=== PATIENT | male | born 1955 | race Caucasian/White ===

== ENCOUNTER 2017-04-04 20:20 | Emergency (ER) | payer MEDICARE ==
[2017-04-04] MEDS ORDERED: Zofran 4 MG/2 ML VIAL IV ONE (20:47)
[2017-04-04] MEDS ORDERED: MORPHINE SULFATE 10 MG/ML IV ONE (20:47)
[2017-04-04] MEDS ORDERED: BENADRYL 50 MG/ML IV ONE (20:47)
[2017-04-04] MEDS ORDERED: Zofran 4 MG/2 ML VIAL ONE (20:54)
[2017-04-04] MEDS ORDERED: MORPHINE SULFATE 10 MG/ML ONE (20:54)
[2017-04-04] MEDS ORDERED: BENADRYL 50 MG/ML ONE (20:54)
[2017-04-04] MEDS ORDERED: Sodium Chloride 0.9% 1000 ML 1,000 ML ONE (20:55)
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
[2017-04-04] MEDS ORDERED: Sodium Chloride 0.9% 1000 ML 1,000 ML IV SCH (21:00)
[2017-04-04 21:05] LABS: BASOPHIL % 0.4 % (0.0-0.4); Basophil (Absolute #) 0.04 (0-0.4); Eosinophil % 1.1 % (0.00-5.0); Eosinophil (Absolute #) 0.13 (0-0.5); Granulocyte Absolute (ANC) 8.45 (1.4-6.9); Hematocrit 42.8 % (42-50); Hemoglobin 14.3 gm/dl (12.5-18.0); Lymphocyte (Absolute #) 1.47 (1.0-4.6); Lymphocytes % 12.9 % (24.0-44.0); Mean Cell Volume 86.3 fl (78-100); Mean Corpuscular Hemoglobin 28.8 pg (26-32); Mean Corpuscular Hgb Concent. 33.4 g/dl (32-36); Monocyte (Absolute #) 1.33 (0.0-1.3); Monocytes % 11.6 % (0.0-12.0); Platelet Count 328 K/mm3 (150-450); Red Blood Count 4.96 M/mm3 (4.1-5.6); Red Cell Distribution Width 13.2 % (11.5-14.0); White Blood Count 11.4 K/mm3 (4.0-10.5)
[2017-04-04 21:11] LABS: Appearance CLEAR (CLEAR); Bilirubin NEGATIVE (NEGATIVE); Blood NEGATIVE Ery/ul (0-5); Glucose 1000 mg/dL (NEGATIVE); Ketones MODERATE (NEGATIVE); Leukocyte Esterase NEGATIVE (NEGATIVE); Nitrite NEGATIVE (NEGATIVE); Protein,Urine Dip NEGATIVE (Negative); Specific Gravity 1.015 (1.005-1.025); Urobilinogen NORMAL mg/dL (0-1)
[2017-04-04 21:25] LABS: ANION GAP 17.2 MEQ/L (5-15); BILIRUBIN,TOTAL 0.9 mg/dL (0.2-1.0); Calcium 9.8 mg/dL (8.5-10.1); Creatinine 1 1.4 mg/dl (0.55-1.30); Potassium 4.1 mEq/L (3.5-5.1); Total Protein 7.9 gm/dL (6.4-8.2)
[2017-04-04] MEDS ORDERED: NovoLIN R IV ONE (23:29)
[2017-04-04] MEDS ORDERED: NovoLIN R ONE (23:40)
[2017-04-04 23:45] VITALS: BP 154/76; PULSE 90; O2SAT 96
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
== END 2017-04-04 23:45 | disposition home or self-care (01) ==
LOC: ED 20:20
DX: S20.219A Contusion of unspecified front wall of thorax, initial encounter (principal); S30.1XXA Contusion of abdominal wall, initial encounter; K80.20 Calculus of gallbladder without cholecystitis without obstruction; Y04.0XXA Assault by unarmed brawl or fight, initial encounter; Z98.61 Coronary angioplasty status; R07.9 Chest pain, unspecified; I25.10 Atherosclerotic heart disease of native coronary artery without angina pectoris; E78.00 Pure hypercholesterolemia, unspecified; I10 Essential (primary) hypertension; I25.2 Old myocardial infarction; E11.9 Type 2 diabetes mellitus without complications
CPT/HCPCS: 36415; 71260; 74177; 80053; 81002; 82150; 83690; 84484; 85025; 93005; 96360; 96361; 96374; 96375; 99284; J1200; J2270; J2405; A9270-GY

== ENCOUNTER 2022-07-06 16:51 | Emergency (ER) | payer MEDICARE ==
[2022-07-06] MEDS ORDERED: MORPHINE SULFATE 4 MG INJ IV ONE (16:55)
[2022-07-06] MEDS ORDERED: Sodium Chloride 0.9% 1000 ML 1,000 ML IV STA (16:55)
[2022-07-06] MEDS ORDERED: Sodium Chloride 0.9% 1000 ML 1,000 ML ONE (16:58)
[2022-07-06] MEDS ORDERED: MORPHINE SULFATE 4 MG INJ ONE (16:58)
[2022-07-06 17:17] LABS: Absolute Neutrophil Ct (ANC) 7.79 x10^3/uL (1.4-6.9); BASOPHIL % 0.7 % (0.0-0.4); Basophil (Absolute #) 0.08 x10^3/uL (0-0.4); Eosinophil % 1.8 % (0.00-5.0); Hematocrit 43.1 % (42-50); Hemoglobin 13.8 g/dL (12.5-18.0); IMMATURE GRAN # 0.08 x10^3u/L (0.00-0.03); IMMATURE GRAN % 0.7 % (0.00-0.4); Lymphocyte (Absolute #) 1.78 x10^3/uL (1.0-4.6); Lymphocytes % 16.1 % (24.0-44.0); Mean Cell Volume 91.5 fL (78-100); Mean Corpuscular Hemoglobin 29.3 pg (26-32); Monocyte (Absolute #) 1.13 x10^3/uL (0.0-1.3); Monocytes % 10.2 % (0.0-12.0); Neutrophil % 70.5 % (36.0-66.0); Platelet Count 312 x10^3/uL (150-450); Red Blood Count 4.71 x10^6/uL (4.1-5.6); Red Cell Distribution Width 13.2 % (11.5-14.0); White Blood Count 11.1 x10^3/uL (4.0-10.5)
--- NOTE | 2022-07-06 17:27 | ERPHSYRPT ---
- History of Present Illness Source: patient, family Exam Limitations: no limitations Patient Subjective Stated Complaint: Pt was on his roof of his garage and fell off approx 10 ft and landed on his right shoulder/neck Triage Nursing Assessment: Pt brought to the ER by his son, hypertensive, rates pain as 10/10, can't move his right arm and has pain in his neck, no visible bleeding except for some scratches on his left calf, pulses normal, cap refill normal, hx of neck surgery, denies loss of consciousness Occurred: just prior to arrival Reason for Fall: fell from height Injuries/Pain Location: head, neck, upper extremity (right shoulder) Loss of Consciousness: no loss of consciousness Quality: throbbing Severity of Pain-Max: moderate Severity of Pain-Current: moderate Modifying Factors: Improves With: cold therapy Associated Symptoms (Fall): denies symptoms Hx Tetanus, Diphtheria Vaccination/Date Given: Yes Hx Influenza Vaccination/Date Given: No Hx Pneumococcal Vaccination/Date Given: No <SUHAIL,TIFF - Last Filed: 07/06/22 18:11> <FLORIDALMA FOREMAN - Last Filed: 07/06/22 21:24> - History of Present Illness Time Seen by Provider: 07/06/22 17:23 Physician History: Pt was on his roof of his garage and fell off approx 10 ft and landed on his right shoulder/neck just prior to arrival to ER. rates pain as 10/10, can't move his right arm and has pain in his neck, no visible bleeding except for some scratches on his left calf, Denies loss of consciousness (SUHAIL,TIFF) Allergies/Adverse Reactions: No Known Drug Allergies Allergy (Verified 07/06/22 17:09) Home Medications: Bupropion HCl Xl 150 mg [Wellbutrin XL 150 MG] 300 mg PO DAILY 04/04/17 [History] Duloxetine HCl [Cymbalta] 90 mg PO QHS 04/04/17 [History] Esomeprazole Magnesium [Nexium] 40 mg PO DAILY 04/04/17 [History] Lisinopril 5 mg [Zestril 5 MG] 5 mg PO DAILY 04/04/17 [History] Metformin HCl Xr 500 mg [Glucophage XR 500 MG] 1,000 mg PO BID 04/04/17 [History] Atorvastatin Calcium 80 mg PO DAILY 07/06/22 [History] Insulin Aspart [Novolog] 0 unit SQ UD 07/06/22 [History] Metoprolol Tartrate 50 mg [Lopressor 50 MG] 50 mg PO BID 07/06/22 [History] Testosterone Cypionate 200 mg IM UD 07/06/22 [History] Travel Risk - International Travel Have you traveled outside of the country in past 3 weeks: No - Coronavirus Screening Are you exhibiting any of the following symptoms?: No Close contact with a COVID-19 positive Pt in past 14-21 Days: No - Vaccine Status Have you recieved a Covid-19 vaccination: Yes 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: [employer] - Vaccination Dates Date of 2cond Vaccination (if applicable): 2020 <TIFF JANG - Last Filed: 07/06/22 18:11> - Review of Systems Constitutional: No Fever, No Chills Eyes: No Symptoms Ears, Nose, & Throat: No Symptoms Respiratory: No Cough, No Dyspnea Cardiac: No Chest Pain, No Edema, No Syncope Abdominal/Gastrointestinal: No Abdominal Pain, No Nausea, No Vomiting, No Diarrhea Genitourinary Symptoms: No Dysuria Musculoskeletal: Neck Pain, Fall, Joint Pain (right shoulder), No Back Pain Skin: No Rash Neurological: No Dizziness, No Focal Weakness, No Sensory Changes Psychological: No Symptoms Endocrine: No Symptoms All Other Systems: Reviewed and Negative <TIFF JANG - Last Filed: 07/06/22 18:11> - Review of Systems Hematologic/Lymphatic: No Symptoms Immunological/Allergic: No Symptoms <FLORIDALMA FOREMAN - Last Filed: 07/06/22 21:24> - Past Medical History Pertinent Past Medical History: Yes Neurological History: Peripheral Neuropathy ENT History: Cataracts Cardiac History: Coronary Artery Disease, High Cholesterol, Hypertension, Myocardial Infarction ([place]) Respiratory History: Pneumonia, Sleep Apnea, Other Endocrine Medical History: Diabetes Type II, Other Musculoskeletal History: Degenerative Disk Disease, Osteoarthritis GI Medical History: Hernia, Polyps History: No Pertinent History Psycho-Social History: Anxiety, Depression Male Reproductive Disorders: Prostate Problems Other Medical History: HX OF PLEURISY, FX RIGHT 5TH METACARPAL, ANXIETY, DEPRESSION, HERNIA REPAIR LEFT, INGUINAL HERNIA RIGHT - Past Surgical History Past Surgical History: Yes Neuro Surgical History: No Pertinent History Cardiac: No Pertinent History, Cardiac Stent Respiratory: No Pertinent History Gastrointestinal: Cholecystectomy, Hernia Repair Genitourinary: No Pertinent History Musculoskeletal: No Pertinent History Male Surgical History: Vasectomy Other Surgical History: colonscory, septmeber neck surgery, rotator cuff, vertebrea - Social History Smoking Status: Former smoker How long have you smoked: 40 years Exposure to second hand smoke: No Drug Use: none Patient Lives Alone: No <SUHAIL,TIFF - Last Filed: 07/06/22 18:11> Significant Family History: no pertinent family hx <FLORIDALMA FOREMAN - Last Filed: 07/06/22 21:24> - Anusha Coma Score Best Eye Response ([place]): (4) open spontaneously Best Verbal Response ([place]): (5) oriented Best Motor Response ([place]): (6) obeys commands Anusha Total: 15 - Physical Exam General Appearance: no apparent distress, alert Head Injury: no evidence of injury Eye Exam: PERRL/EOMI ENT Exam: airway nml Neck Exam: normal inspection, pain on movement of neck, tenderness, tender lateral, mid-line tenderness, No meningismus Respiratory/Chest Exam: normal breath sounds, No chest tenderness, No respiratory distress Cardiovascular Exam: normal heart sounds, regular rate/rhythm Gastrointestinal Exam: soft, No tenderness, No distention, No guarding, No ecchymosis Back Exam: normal inspection, No vertebral tenderness Extremity Exam: normal inspection, normal range of motion, pelvis stable, limited range of motion (right shoulder), No deformities Neurologic Exam: alert, oriented x 3, cooperative, sensation nml, No motor deficits Skin Exam: normal color, warm, dry SpO2: 99 <SUHAIL,TIFF - Last Filed: 07/06/22 18:11> - Physical Exam Rectal Exam: deferred Peripheral Pulses: carotid (R): 2+, carotid (L): 2+, femoral (R): 2+, femoral (L): 2+, dorsalis-pedis (R): 2+, dorsalis-pedis (L): 2+ 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, normal mood/affect, nml cerebellar function, nml station & gait SpO2 Interpretation: normal O2 Delivery: Room Air <FLORIDALMA FOREMAN - Last Filed: 07/06/22 21:24> - Nursing Vital Signs Nursing Vital Signs: Initial Vital Signs Temperature 98.1 F 07/06/22 16:55 Pulse Rate 71 07/06/22 16:55 Blood Pressure 131/105 07/06/22 16:55 O2 Sat by Pulse Oximetry 99 07/06/22 16:55 Pain Scale Pain Intensity 8 Procedures - Splinting Time of Procedure: 20:09 (right shoulder immobilization) Location of Splint: Right Type of Splint: Other (Sling and swath immobilization - not exactlty splint but not listed elsewhere to document) Splint Applied By: ED Nurse Pre-Proc Neuro Vasc Exam: normal Post-Proc Neuro Vasc Exam: neurovascular intact, unchanged from pre-exam <FLORIDALMA FOREMAN - Last Filed: 07/06/22 21:24> - Course Nursing assessment & vital signs reviewed: Yes - Radiology Exams Right Shoulder X-ray Interpretation: Reviewed by me (right head of humurus fracture), Teler adiologist Report - CT Exams Head CT Interpretation: Tele-radiologist Report Cervical Spine CT Interpretation: Tele-radiologist Report <TIFF JANG - Last Filed: 07/06/22 18:11> - Course Nursing assessment & vital signs reviewed: Yes - Radiology Exams Right Shoulder X-ray Interpretation: Teleradiologist Report, Other (ACjoint injury) - CT Exams Head CT Interpretation: Tele-radiologist Report, No Fracture, No/Intracranial Hemorrh ag Cervical Spine CT Interpretation: Tele-radiologist Report, No Fracture, Other (DJD SP surgery) Abdomen/Pelvis CT Interpretation: Tele-radiologist Report, Other (renal cysts and fat stranding no free fluid) <FLORIDALMA FOREMAN - Last Filed: 07/06/22 21:24> Ordered Tests: Active Orders 24 hr Category Date Time Status Cervical Collar Application STAT Care 07/06/22 19:56 Active IV Insertion STAT Care 07/06/22 16:57 Active Immobilizer STAT Care 07/06/22 20:07 Active POCT Glucose Check STAT Care 07/06/22 20:25 Active Sling Application STAT Care 07/06/22 20:06 Active ABDOMEN AND PELVIS W/0 CONTRAS [CT] Stat Exams 07/06/22 18:50 Completed CERVICAL SPINE WO CONTRAST [CT] Stat Exams 07/06/22 16:55 Completed HEAD WITHOUT CONTRAST [CT] Stat Exams 07/06/22 16:55 Completed SHOULDER Stat Exams 07/06/22 16:57 Completed AMYLASE Stat Lab 07/06/22 17:15 Completed CBC W DIFF Stat Lab 07/06/22 17:15 Completed CMP Stat Lab 07/06/22 17:15 Completed LIPASE Stat Lab 07/06/22 17:15 Completed Lactic Acid Stat Lab 07/06/22 20:20 Completed POCT GLUCOSE Stat Lab 07/06/22 20:26 Completed UA W/RFX UR CULTURE Stat Lab 07/06/22 20:41 Completed Urine Triage Profile Stat Lab 07/06/22 20:41 Received Medication Summary Discontinued Medications Generic Name Dose Route Start Last Admin Trade Name Freq PRN Reason Stop Dose Admin Hydromorphone HCl 1 mg 07/06/22 18:08 07/06/22 18:12 Hydromorphone 1 Mg/1ml Inj 1 Mg/Ml Syringe IM 07/06/22 18:09 1 mg STAT ONE Administration Hydromorphone HCl Confirm 07/06/22 18:10 Hydromorphone 1 Mg/1ml Inj 1 Mg/Ml Syringe Administered 07/06/22 18:11 Dose 1 mg .ROUTE .STK-MED ONE Hydromorphone HCl 0.5 mg 07/06/22 20:00 07/06/22 20:20 Hydromorphone 1 Mg/1ml Inj 1 Mg/Ml Syringe IV 07/06/22 20:01 0.5 mg STAT ONE Administration Hydromorphone HCl Confirm 07/06/22 20:17 Hydromorphone 1 Mg/1ml Inj 1 Mg/Ml Syringe Administered 07/06/22 20:18 Dose 1 mg .ROUTE .STK-MED ONE Sodium Chloride 1,000 mls @ 999 mls/hr 07/06/22 16:55 07/06/22 17:59 Sodium Chloride 0.9% 1000 Ml IV 07/06/22 17:55 Infused .Q1H1M STA Infusion Sodium Chloride Confirm 07/06/22 16:58 Sodium Chloride 0.9% 1000 Ml Administered 07/06/22 16:59 Dose 1,000 mls @ ud .ROUTE .STK-MED ONE Ketorolac Tromethamine 60 mg 07/06/22 18:08 07/06/22 18:11 Ketorolac Tromethamine 30 Mg/Ml Inj IM 07/06/22 18:09 60 mg STAT ONE Administration Ketorolac Tromethamine Confirm 07/06/22 18:10 Ketorolac Tromethamine 30 Mg/Ml Inj Administered 07/06/22 18:11 Dose 60 mg .ROUTE .STK-MED ONE Morphine Sulfate 4 mg 07/06/22 16:55 07/06/22 16:59 Morphine Sulfate 4 Mg/Ml Injection IV 07/06/22 16:56 4 mg STAT ONE Administration Morphine Sulfate Confirm 07/06/22 16:58 Morphine Sulfate 4 Mg/Ml Injection Administered 07/06/22 16:59 Dose 4 mg .ROUTE .STK-MED ONE Orphenadrine Citrate 60 mg 07/06/22 20:02 07/06/22 20:20 Orphenadrine Citrate 60 Mg/2 Ml Vial IM 07/06/22 20:03 60 mg STAT ONE Administration Orphenadrine Citrate Confirm 07/06/22 20:17 Orphenadrine Citrate 60 Mg/2 Ml Vial Administered 07/06/22 20:18 Dose 60 mg .ROUTE .STK-MED ONE Lab/Rad Data: Laboratory Result Diagrams 07/06/22 17:15 07/06/22 17:15 Laboratory Results 07/06/22 07/06/22 07/06/22 Range/Units 20:41 20:26 20:20 WBC (4.0-10.5) x10^3/uL RBC (4.1-5.6) x10^6/uL Hgb (12.5-18.0) g/dL Hct (42-50) % MCV (78-100) fL MCH (26-32) pg MCHC (32-36) g/dL RDW (11.5-14.0) % Plt Count (150-450) x10^3/uL MPV (7.5-11.0) fL Gran % (36.0-66.0) % Immature Gran % (Auto) (0.00-0.4) % Nucleat RBC Rel Count (0.00-0.1) % Eos # (Auto) (0-0.5) x10^3/uL Immature Gran # (Auto) (0.00-0.03) x10^3u/L Absolute Lymphs (auto) (1.0-4.6) x10^3/uL Absolute Monos (auto) (0.0-1.3) x10^3/uL Absolute Nucleated RBC (0.00-0.01) x10^3u/L Lymphocytes % (24.0-44.0) % Monocytes % (0.0-12.0) % Eosinophils % (0.00-5.0) % Basophils % (0.0-0.4) % Absolute Granulocytes (1.4-6.9) x10^3/uL Basophils # (0-0.4) x10^3/uL Sodium (137-145) mmol/L Potassium (3.5-5.1) mmol/L Chloride (98-107) mmol/L Carbon Dioxide (22-30) mmol/L Anion Gap (5-15) MEQ/L BUN (9-20) mg/dL Creatinine (0.66-1.25) mg/dL Estimated GFR ML/MIN Glucose (74-106) mg/dL POC Glucometer 206 H (74 to 106) mg/dL Lactic Acid 1.9 (0.4-2.0) Calcium (8.4-10.2) mg/dL Total Bilirubin (0.2-1.3) mg/dL AST (17-59) U/L ALT (0-50) U/L Alkaline Phosphatase (38-126) U/L Serum Total Protein (6.3-8.2) g/dL Albumin (3.5-5.0) g/dL Amylase (30-110) U/L Lipase (23-300) U/L Urine Color Dark Yellow (Yellow) Urine Appearance Clear (Clear) Urine pH 5.5 (4.6-8.0) Ur Specific [place] >=1.030 A (1.005-1.030) Urine Protein 100 A (Negative) Urine Glucose (UA) >=1000 A (Negative) mg/dL Urine Ketones Trace A (Negative) Urine Blood Negative (Negative) Urine Nitrite Negative (Negative) Urine Bilirubin Negative (Negative) Urine Urobilinogen 1.0 A (0.2) mg/dL Ur Leukocyte Esterase Negative (Negative) U Hyaline Cast (Auto) 6-10 A (0-2) /LPF Urine Microscopic RBC 0-2 (0-5) /HPF Urine Microscopic WBC 3-5 (0-5) /HPF Ur Epithelial Cells None Seen (None Seen) /HPF Urine Bacteria None Seen (None Seen) /HPF Urine Culture Reflexed NO (NO) 07/06/22 07/06/22 07/06/22 Range/Units 17:15 17:15 17:15 WBC 11.1 H (4.0-10.5) x10^3/uL RBC 4.71 (4.1-5.6) x10^6/uL Hgb 13.8 (12.5-18.0) g/dL Hct 43.1 (42-50) % MCV 91.5 (78-100) fL MCH 29.3 (26-32) pg MCHC 32.0 (32-36) g/dL RDW 13.2 (11.5-14.0) % Plt Count 312 (150-450) x10^3/uL MPV 9.0 (7.5-11.0) fL Gran % 70.5 H (36.0-66.0) % Immature Gran % (Auto) 0.7 H (0.00-0.4) % Nucleat RBC Rel Count 0.0 (0.00-0.1) % Eos # (Auto) 0.20 (0-0.5) x10^3/uL Immature Gran # (Auto) 0.08 H (0.00-0.03) x10^3u/L Absolute Lymphs (auto) 1.78 (1.0-4.6) x10^3/uL Absolute Monos (auto) 1.13 (0.0-1.3) x10^3/uL Absolute Nucleated RBC 0.00 (0.00-0.01) x10^3u/L Lymphocytes % 16.1 L (24.0-44.0) % Monocytes % 10.2 (0.0-12.0) % Eosinophils % 1.8 (0.00-5.0) % Basophils % 0.7 (0.0-0.4) % Absolute Granulocytes 7.79 H (1.4-6.9) x10^3/uL Basophils # 0.08 (0-0.4) x10^3/uL Sodium 142 (137-145) mmol/L Potassium 4.6 (3.5-5.1) mmol/L Chloride 105 (98-107) mmol/L Carbon Dioxide 25 (22-30) mmol/L Anion Gap 15.5 H (5-15) MEQ/L BUN 19 (9-20) mg/dL Creatinine 1.33 H (0.66-1.25) mg/dL Estimated GFR 57.2 ML/MIN Glucose 233 H (74-106) mg/dL POC Glucometer (74 to 106) mg/dL Lactic Acid (0.4-2.0) Calcium 9.2 (8.4-10.2) mg/dL Total Bilirubin 0.70 (0.2-1.3) mg/dL AST 26 (17-59) U/L ALT 19 (0-50) U/L Alkaline Phosphatase 69 (38-126) U/L Serum Total Protein 7.0 (6.3-8.2) g/dL Albumin 4.0 (3.5-5.0) g/dL Amylase 50 (30-110) U/L Lipase 119 (23-300) U/L Urine Color (Yellow) Urine Appearance (Clear) Urine pH (4.6-8.0) Ur Specific [place] (1.005-1.030) Urine Protein (Negative) Urine Glucose (UA) (Negative) mg/dL Urine Ketones (Negative) Urine Blood (Negative) Urine Nitrite (Negative) Urine Bilirubin (Negative) Urine Urobilinogen (0.2) mg/dL Ur Leukocyte Esterase (Negative) U Hyaline Cast (Auto) (0-2) /LPF Urine Microscopic RBC (0-5) /HPF Urine Microscopic WBC (0-5) /HPF Ur Epithelial Cells (None Seen) /HPF Urine Bacteria (None Seen) /HPF Urine Culture Reflexed (NO) - Progress Progress: improved, pain not gone completely Counseled pt/family regarding: lab results, diagnosis, need for follow-up, rad results <TIFF JANG - Last Filed: 07/06/22 18:11> - Progress Progress: improved, re-examined Counseled pt/family regarding: lab results, diagnosis, need for follow-up, rad results <FLORIDALMA FOREMAN - Last Filed: 07/06/22 21:24> - Progress Progress Note: 07/06/22 18:51 taken over at change of shift from Dr. Jang after introduction and discussion of pending CT and telrad read for right shoulder which appears impacted Fx. No known LOC. full ROM other ext without pain. Abd tender RLQ - discussed risk and benefit of CT and purpose to look for internal injury and pt wishes to proceed. He has normal mental status . No dizziness. Normal neuro . No blood thinners. Last tet update 2 years ago per pt. Collaborated Hx with son independently as source. Consulting with telrad for CT and right shoulder rad readings. 07/06/22 18:56 abrasion left elbow and superficial lac left LE all nontender. 07/06/22 20:03 Discussed additional labs lipase amylase lactate due to abd pain as well as abd ct with pt and family risks and benefits and they wish to proceed. Reviewed and Discussed with family and pt, results of shoulder ( still ligament injury no fx seen but may be occult) CT head adn Cspine DDD and need to be alert for progression from usual PN symptoms and any bowel or bladder symptoms to retuyrn and they understand. 07/06/22 21:20 Pt and family advised that even with no internal bleeding on cat scan or serious injury there can still be something evolving not yet detected and tehy understand and pprefer DC to outpt f/u rather than further w/u in ER or admit at this time and this is reasonable given current results. they have the capacity to make this choice. (FLORIDALMA FOREMAN) Medical Desision Making - Diagnostic Testing Diagnostic test were ordered, analyzed, and reviewed by me: Yes Radiological Interpretation: Interpreted by me, Reviewed by me, Teleradiologist Report - Risk of complications The pt has a mod risk of morbidity or mortality based on: Need for minor surgical intervention in patient with know risk factors <TIFF JANG - Last Filed: 07/06/22 18:11> <TIFF JANG - Last Filed: 07/06/22 18:11> - Departure Departure Disposition: Home Critical Care Time: No <FLORIDALMA FOREMAN - Last Filed: 07/06/22 21:24> - Departure Clinical Impression: Separation of right acromioclavicular joint, cervical spine strain/DDD, Concussion, renal contussion and cyst Condition: Good Referrals: SHERLYN CARR MD [Primary Care Provider] - Follow up/PCP as directed Instructions: Concussion, Adult (DC), Shoulder, Degenerative Disc Disease (DC), Shoulder Sprain (DC) Additional Instructions: followup with orthopedic for your right shoulder and cervical disc disease and strain. See your regular Dr. for your concussion and kidney contusion and cysts. There could still be a serious injury from the concussion evolving and in the stomach from trauma evolving even though the CT scans appear OK initially - so it is important to return meantime if any concerns. Use tylenol for pain as this is less likely to cause bleeding if internal injury. No driving when taking muscle relaxer. Prescriptions: Cyclobenzaprine HCl 10 mg [Cyclobenzaprine 10 MG] 10 mg PO Q8H PRN PRN #10 tablet PRN Reason: Pain
[2022-07-06 17:31] LABS: ANION GAP 15.5 MEQ/L (5-15); BILIRUBIN,TOTAL 0.7 mg/dL (0.2-1.3); Calcium 9.2 mg/dL (8.4-10.2); Creatinine 1 1.33 mg/dL (0.66-1.25); EST GLOMERULAR FILTRATION RATE 57.2 ML/MIN; Potassium 4.6 mmol/L (3.5-5.1)
[2022-07-06] MEDS ORDERED: Hydromorphone 1 mg/ml Injection IM ONE (18:08)
[2022-07-06] MEDS ORDERED: TORAdol 30 mg Injection IM ONE (18:08)
[2022-07-06] MEDS ORDERED: Hydromorphone 1 mg/ml Injection ONE ×2 (18:10→20:17)
[2022-07-06] MEDS ORDERED: TORAdol 30 mg Injection ONE (18:10)
--- NOTE | 2022-07-06 19:05 | XRAY ---
CLINICAL HISTORY:Fall from roof. COMPARISON:CT head done on 06/14/2013. TECHNIQUES:Axial noncontrast CT scan of the brain was performed from the skull base to the high parietal region. CTDI: 53.92, DLP:1016.25. FINDINGS: The ventricular system, cortical sulci and basal cisterns are unremarkable according to the age. The visualized brain parenchyma shows normal appearance. English-white matter differentiation is maintained. No midline shifts or deformity. No intracerebral or extra axial hematoma. Normal size and configuration of the cerebral ventricles. Normal CT appearance of the posterior fossa structures namely the cerebellar hemispheres, brainstem and cerebellar peduncles. The IACs are unremarkable. The cerebello-pontine angles are clear. The pituitary gland, the pineal gland, the optic chiasm is unremarkable. The osseous structures in the skull base are unremarkable. No definite calvarium fractures. Th scanned paranasal sinuses are clear. IMPRESSION: 1. Unremarkable scan. 2. No interval change when compared to the last scan. Electronically Signed by: Ta Seymour MD. (07/06/2022 17:56:40 RIGGING UP WORKER)
--- NOTE | 2022-07-06 19:16 | XRAY ---
CLINICAL HISTORY:Fall from roof. COMPARISON:Prior CT dated 12/26/2015. TECHNIQUES:Continuous, multislice, nonenhanced CT scan of the cervical spine in the axial plane with multiplanar reconstructions. Total DLP-654.18; CTDI-28.62. FINDINGS: Reduced cervical lordotic curve suggestive of muscle spasm. Degenerative osseous changes but no suspicious focal bony lesions. Anterior spinal fixation of C5 and C6 showing disc prosthesis at C5-C6 level without hardware complications. Interspinous prosthesis at C5/C6. No vertebral wedging or collapse. At C3-C4, C4-C5, there is mild posterior disc bulge compressing the thecal sac and encroaching upon lateral recess and neural foramina. At C6-C7, there is posterior osteophyte disc complex indenting the thecal sac and there are bilateral recess narrowing compromising neural foramina. Unremarkable facet joints. Unremarkable craniocervical junction. Preserved spinal canal with no retropulsed fragments. No signs of spinal instability. No paraspinal mass or collection. IMPRESSION: 1. Reduced cervical lordotic curve suggestive of muscle spasm. 2. No acute bony injury is identified. 3. Status post ACDF showing disc prosthesis at C5-C6 level without hardware complications. Interspinous implant at C5/C6. 4. Cervical spondylodegenerative changes with multilevel posterior disc bulge mainly at C3-C4, C4-C5 and C6-C7 levels as described. Electronically Signed by: Ta Seymour MD. (07/06/2022 18:08:35 PRODUCT INFO SPECIALIST)
--- NOTE | 2022-07-06 19:21 | XRAY ---
CLINICAL HISTORY:Fall. COMPARISON:Prior CR dated 08/23/2013. TECHNIQUES:X-ray of right shoulder-AP [external/internal rotation] and lateral views. FINDINGS: There is widening of the right acromioclavicular joint space. The cortical clavicular joint space is maintained. Degenerative changes in the glenohumeral joint as evidenced by narrowing of joint space. No acute bony fracture is identified. Calcified densities seen in the superolateral aspect of right humerus representing calcific tendinitis. IMPRESSION: 1. Widening of the right acromioclavicular joint space representing acromioclavicular joint injury. Suggest clinical correlation. 2. Degenerative changes in the glenohumeral joint representing arthritic changes. 3. No acute bony fracture is identified. 4. Supraspinatus calcific tendinitis. Bone Disclaimer: A subtle bone abnormality or fracture may not be readily apparent on x-rays, thus clinical correlation and further imaging including follow-up CT, MRI or follow-up x-rays are advised as needed. Electronically Signed by: Ta Seymour MD. (07/06/2022 18:12:46 SURVEY SUPERINTENDENT)
[2022-07-06] MEDS ORDERED: Hydromorphone 1 mg/ml Injection IV ONE (20:00)
[2022-07-06] MEDS ORDERED: Norflex 60 MG/2 ML IM ONE (20:02)
[2022-07-06 20:11] LABS: AMYLASE 50 U/L (30-110); LIPASE 119 U/L (23-300)
[2022-07-06] MEDS ORDERED: Norflex 60 MG/2 ML ONE (20:17)
--- NOTE | 2022-07-06 20:21 | XRAY ---
CLINICAL HISTORY:Tender right abd after fall. COMPARISON:CT done on 04/04/2017. TECHNIQUES:CT scan of the abdomen and pelvis was performed without contrast. Coronal and sagittal reconstructive images were also obtained. CTDI: 11.13 mGy, DLP: 586.5 mGy*cm. FINDINGS: The liver appears normal. No focal or diffuse parenchymal abnormality. The portal vein, intrahepatic biliary radicals and the bile ducts are normal. Gallbladder is surgically removed. No abnormality in gallbladder fossa. The spleen, pancreas, adrenal glands are unremarkable. Both kidneys shows multiple hypoattenuation cortical cysts. There is perinephric fat stranding bilaterally. The largest cyst in the right kidney measures 2.5 x 1.7 cm in interpolar region. The largest cyst in left kidney measures 4.1 x 3.7 cm. No calculi or hydronephrosis. Colon shows diverticulosis without evidence of diverticulitis. There is no evidence of significant enlargement of the mesenteric or retroperitoneal lymph nodes. Atherosclerotic calcification of abdominal aorta and iliac vessels. The urinary bladder is partially distended. The prostate appear mildly enlarged. Bilateral subcentimeter inguinal lymph nodes. Bilateral fat-containing inguinal hernia. Anterior osteophyte formation is seen in the visualized spine. No sclerotic or lytic osseous lesions. No free fluid in abdomen. Lung window shows airspace disease at lung bases bilaterally, more on the right. IMPRESSION: 1. Bilateral renal cortical cysts with perinephric fat stranding. 2.Increased perinephric fat stranding when compared to the last scan. 3. Uncomplicated sigmoid diverticulosis. 4. Mild enlarged prostate. 5. Rest of the findings as detailed above. Electronically Signed by: Ta Seymour MD. (07/06/2022 19:13:58 GROUP SALES MANAGER)
[2022-07-06 20:56] LABS: Appearance Clear (Clear); Bacteria None Seen /HPF (None Seen); Bilirubin Negative (Negative); Blood Negative (Negative); Epithelial Cells None Seen /HPF (None Seen); Glucose, Urine >=1000 mg/dL (Negative); Ketones Trace (Negative); Leukocyte Esterase Negative (Negative); Nitrite Negative (Negative); Ph 5.5 (4.6-8.0); Protein,Urine Dip 100 (Negative); RBC 0-2 /HPF (0-5); Specific Gravity >=1.030 (1.005-1.030)
[2022-07-06 20:57] LABS: ADD URINE CULTURE? NO (NO)
[2022-07-06 21:05] LABS: Amphetamine,Urine NEGATIVE (NEGATIVE); Barbiturate,Urine NEGATIVE (NEGATIVE); Benzodiazepine,Urine NEGATIVE (NEGATIVE); Cocaine,Urine NEGATIVE (NEGATIVE); Methadone,Urine NEGATIVE (NEGATIVE); Opiate,Urine POSITIVE (NEGATIVE); PCP,Urine NEGATIVE (NEGATIVE); THC,Urine POSITIVE (NEGATIVE)
[2022-07-06 21:29] VITALS: BP 155/84; PULSE 69; O2SAT 97
== END 2022-07-06 21:30 | disposition home or self-care (01) ==
LOC: ED 16:51
DX: S43.101A Unspecified dislocation of right acromioclavicular joint, initial encounter (principal); S16.1XXA Strain of muscle, fascia and tendon at neck level, initial encounter; S06.0X0A Concussion without loss of consciousness, initial encounter; S37.019A Minor contusion of unspecified kidney, initial encounter; W13.2XXA Fall from, out of or through roof, initial encounter; Y92.007 Garden or yard of unspecified non-institutional (private) residence as the place of occurrence of the external cause; M50.30 Other cervical disc degeneration, unspecified cervical region; Q61.02 Congenital multiple renal cysts; E78.5 Hyperlipidemia, unspecified; I10 Essential (primary) hypertension; E11.42 Type 2 diabetes mellitus with diabetic polyneuropathy; Z79.4 Long term (current) use of insulin; Z79.84 Long term (current) use of oral hypoglycemic drugs; Z79.899 Other long term (current) drug therapy
CPT/HCPCS: 36000; 36415; 70450; 72125; 73030; 74176; 80053; 80307; 81001; 82150; 82947; 83605; 83690; 85025; 96360; 96372; 96374; 96375; 96376; 99284; J1170; J1885; J2270; J2360; L3650

== ENCOUNTER 2022-12-03 03:13 | Emergency (ER) | payer MEDICARE ==
[2022-12-03 03:28] VITALS: TEMP 97.4
[2022-12-03] MEDS ORDERED: Zofran 4 MG/2 ML VIAL IV ONE (03:52)
[2022-12-03] MEDS ORDERED: MORPHINE SULFATE 4 MG INJ IV ONE (03:52)
[2022-12-03] MEDS ORDERED: BABY ASPIRIN 81 MG CHEW PO ONE (03:52)
--- NOTE | 2022-12-03 03:57 | ERPHSYRPT ---
<TIFFANIE COLÓN AlexCiro - Last Filed: 12/03/22 06:47> - History of Present Illness Time Seen by Provider: 12/03/22 03:25 Historian: patient, family (Patient's spouse gave independent additional histor y) Exam Limitations: no limitations Patient Subjective Stated Complaint: pt states he began having chest pain at approx 2200 tnight. rates pain 9/10 and describes as aching and pressure. Triage Nursing Assessment: pt alert and oriented, answers questions approp. pt ambulates into room with steady gait noted. respirations nonlabored. lungs cta bilat. skin warm and dry. heart rate 82 sinus rhythm on monitor. Physician History: This is a 67-year-old white male patient who presents to the emergency department with nonradiating, left anterior chest pressure that began approximately 9 to 10:00 PM last evening. His pain and somewhat improved until earlier this morning when approximately 1 to 2 hours prior to arrival, he ended up taking 2 nitroglycerin because of the increased intensity of his left chest pressure. He only received mild relief. Patient recently had a right scapular/shoulder surgery. This chest pressure is separate from that other pain he was having in the right shoulder/scapular region. Patient's measurement psychologist is Dr. Russell. Patient has a history of diabetes, hypertension, hyperlipidemia and gastroesophageal reflux disease. Timing/Duration: yesterday Quality: pressure (Left anterior chest) Chest Pain Radiation: no radiation Severity of Pain-Max: moderate Severity of Pain-Current: mild (to mod) Modifying Factors: Improves With: nitroglycerin (Mildly, temporarily improved) Associated Symptoms: denies symptoms Nitro Today/Relief: 0.4 mg x 2, provided at home, mild relief (Temporary) Aspirin Treatment Today: no aspirin today Allergies/Adverse Reactions: No Known Drug Allergies Allergy (Verified 12/03/22 03:28) Home Medications: Bupropion HCl Xl 150 mg [Wellbutrin XL 150 MG] 300 mg PO DAILY 04/04/17 [History] Duloxetine HCl [Cymbalta] 90 mg PO QHS 04/04/17 [History] Esomeprazole Magnesium [Nexium] 40 mg PO DAILY 04/04/17 [History] Lisinopril 5 mg [Zestril 5 MG] 5 mg PO DAILY 04/04/17 [History] Metformin HCl Xr 500 mg [Glucophage XR 500 MG] 1,000 mg PO DAILY 04/04/17 [History] Atorvastatin Calcium 80 mg PO DAILY 07/06/22 [History] Insulin Aspart [Novolog] 0 unit SQ UD 07/06/22 [History] Metoprolol Tartrate 50 mg [Lopressor 50 MG] 50 mg PO BID 07/06/22 [History] Testosterone Cypionate 200 mg IM UD 07/06/22 [History] Hx Tetanus, Diphtheria Vaccination/Date Given: Yes Hx Influenza Vaccination/Date Given: No Hx Pneumococcal Vaccination/Date Given: No Travel Risk - International Travel Have you traveled outside of the country in past 3 weeks: No - Coronavirus Screening Are you exhibiting any of the following symptoms?: No Close contact with a COVID-19 positive Pt in past 14-21 Days: No - Vaccine Status Have you recieved a Covid-19 vaccination: Yes 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[employer] - Vaccination Dates Date of 2cond Vaccination (if applicable): 2020 - Review of Systems Constitutional: No Symptoms Eyes: No Symptoms Ears, Nose, & Throat: No Symptoms Respiratory: No Symptoms Cardiac: Chest Pain Abdominal/Gastrointestinal: No Symptoms Genitourinary Symptoms: No Symptoms Musculoskeletal: No Symptoms Skin: No Symptoms Neurological: No Symptoms Psychological: No Symptoms Endocrine: No Symptoms Hematologic/Lymphatic: No Symptoms Immunological/Allergic: No Symptoms All Other Systems: Reviewed and Negative - Past Medical History Pertinent Past Medical History: Yes Neurological History: Peripheral Neuropathy ENT History: Cataracts Cardiac History: Coronary Artery Disease, High Cholesterol, Hypertension, Myocardial Infarction ([place]) Respiratory History: Pneumonia, Sleep Apnea, Other Endocrine Medical History: Diabetes Type II, Other Musculoskeletal History: Degenerative Disk Disease, Osteoarthritis GI Medical History: Hernia, Polyps History: No Pertinent History Psycho-Social History: Anxiety, Depression Male Reproductive Disorders: Prostate Problems Other Medical History: HX OF PLEURISY, FX RIGHT 5TH METACARPAL, ANXIETY, DEPRESS ION, HERNIA REPAIR LEFT, INGUINAL HERNIA RIGHT - Past Surgical History Past Surgical History: Yes Neuro Surgical History: No Pertinent History Cardiac: No Pertinent History, Cardiac Stent Respiratory: No Pertinent History Gastrointestinal: Cholecystectomy, Hernia Repair Genitourinary: No Pertinent History Musculoskeletal: No Pertinent History, Other Male Surgical History: Vasectomy Other Surgical History: colonscory, septmeber neck surgery, rotator cuff, ve rtebrea. cervical fusion. scapula repair d/t fracture - Social History Smoking Status: Former smoker How long have you smoked: 40 years Exposure to second hand smoke: No Drug Use: none Patient Lives Alone: No Significant Family History: no pertinent family hx - Physical Exam General Appearance: no apparent distress, alert, anxiety Eye Exam: PERRL/EOMI, eyes nml inspection Ears, Nose, Throat Exam: normal ENT inspection, moist mucous membranes Neck Exam: normal inspection, non-tender, supple, full range of motion Respiratory Exam: normal breath sounds, chest tenderness (Described as left an terior chest pressure that is not on radiating), lungs clear, airway intact, No respiratory distress Cardiovascular Exam: regular rate/rhythm, normal heart sounds, normal peripheral pulses Gastrointestinal/Abdomen Exam: soft, normal bowel sounds, No tenderness Rectal Exam: not done Back Exam: normal inspection, normal range of motion, No CVA tenderness, No vertebral tenderness Extremity Exam: normal inspection, normal range of motion, pelvis stable Neurologic Exam: alert, oriented x 3, cooperative, direct marketing representative II-XII nml as tested, normal mood/affect, nml cerebellar function, nml station & gait, sensation nml Skin Exam: normal color, warm, dry Lymphatic Exam: No adenopathy SpO2 Interpretation: normal SpO2: 97 O2 Delivery: Room Air - Course Nursing assessment & vital signs reviewed: Yes EKG Interpreted by Me: RATE (82), Sinus Rhythm, Right [place] Deviation (Borderline), NORMAL INTERVALS, NORMAL QRS, NORMAL ST-T, Other (No acute ischemic changes on today's twelve-lead EKG) - Progress Progress: improved, re-examined Air Movement: good Progress Note: 12/03/22 04:02 This patient's medical issue is 1 of moderate complexity. Level complexity in the work-up performed is based on review of the patient's past medical history, review the patient's medication list, review the patient's drug allergy list, history of present illness and physical findings on examination. The work-up in this patient includes twelve-lead EKG, D-dimer, BNP, troponin level, CBC and CMP. We will hold off on the chest x-ray pending the D-dimer result. If the D- dimer is positive we will perform a CT scan of the chest with contrast. If it is negative we will perform a CT scan of the chest without contrast and also have the radiologist comment on the right scapula. 12/03/22 05:08 Patient reexamined. Patient no longer has chest pain. The patient's D-dimer is slightly elevated at 0.96. Patient will undergo CTA of the chest to evaluate for pulmonary embolus. 12/03/22 06:47 CT scan of the chest with contrast was interpreted by the radiologist. There is no evidence of any pulmonary embolus. There are some changes to suggest small airway disease. No obvious infiltrate present. The patient no longer has chest pain. He has no shortness of breath. The repeat, 3-hour twelve-lead EKG is improved over the first nonacute twelve-lead EKG. The patient's heart rate is now 66 bpm and in normal sinus rhythm without evidence of any acute ischemia. We are awaiting the serial troponin level. I am transferring care of this patient to Dr. Kannan Curry at shift change. If the troponin is in the normal range, I feel this patient can be discharged home. However if it continues to increase he may need inpatient observation with serial twelve-lead EKGs and troponin levels. Blood Culture(s) Obtained: No Antibiotics given: No Counseled pt/family regarding: lab results, diagnosis, need for follow-up, rad results Medical Desision Making - Independent Historian Additional History obtained from: Spouse - Diagnostic Testing Diagnostic test were ordered, analyzed, and reviewed by me: Yes Radiological Interpretation: Reviewed by me, Teleradiologist Report - Risk of complications Low Risk: Low risk of morbidity from additional dx testing or treatment - Departure Departure Disposition: Home Clinical Impression: Chest pain, Acute coronary syndrome, Calcified lung nodule Condition: Stable Critical Care Time: No Referrals: SHERLYN CARR MD [Primary Care Provider] - Follow up/PCP as directed <KANNAN CURRY - Last Filed: 12/03/22 08:22> - History of Present Illness Physician History: Case discussed with Dr. Stewart at 7:[address] Stewart excepts transfer to [facility]. Patient initial troponin elevated at 0.036. Repeat troponin elevated at 0.046. Patient's measurement psychologist, Dr. Russell is on staff at [facility]. Patient agrees to transfer to [facility] for further evaluation and treatment. Patient reassessed. No active chest pain. Vital stable. Family at bedside. Patient voices no other complaints or concerns at this time. - Nursing Vital Signs Nursing Vital Signs: Initial Vital Signs Temperature 97.4 F 12/03/22 03:16 Pulse Rate 78 12/03/22 03:16 Respiratory Rate 20 12/03/22 03:16 Blood Pressure 127/74 12/03/22 03:16 O2 Sat by Pulse Oximetry 97 12/03/22 03:16 Pain Scale Pain Intensity 6 - CT Exams Chest CT Interpretation: Tele-radiologist Report (CT chest negative for PE. Calcified lung nodule observed) Ordered Tests: Active Orders 24 hr Category Date Time Status EKG-ER Only STAT Care 12/03/22 03:52 Active IV Insertion STAT Care 12/03/22 03:52 Active CHEST WITH CONTRAST [CT] Stat Exams 12/03/22 04:54 Completed CBC Q48H Lab 12/04/22 06:00 Ordered CBC Q48H Lab 12/06/22 06:00 Ordered CBC Q48H Lab 12/08/22 06:00 Ordered CBC Q48H Lab 12/10/22 06:00 Ordered CBC Q48H Lab 12/12/22 06:00 Ordered CBC Q48H Lab 12/14/22 06:00 Ordered CBC Q48H Lab 12/16/22 06:00 Ordered CBC Stat Lab 12/03/22 07:55 Ordered CBC W DIFF Stat Lab 12/03/22 03:52 Completed CMP Stat Lab 12/03/22 03:52 Completed D-DIMER QUANTITATIVE Stat Lab 12/03/22 03:52 Completed NT PRO BNPII Stat Lab 12/03/22 03:52 Completed PROTIME WITH INR Stat Lab 12/03/22 07:51 Ordered PROTIME WITH INR Stat Lab 12/03/22 07:55 Ordered PTT Q4H Lab 12/03/22 08:00 Ordered PTT Q4H Lab 12/03/22 12:00 Ordered PTT Q4H Lab 12/03/22 16:00 Ordered PTT Q4H Lab 12/03/22 20:00 Ordered PTT Q4H Lab 12/04/22 00:00 Ordered PTT Q4H Lab 12/04/22 04:00 Ordered PTT Q4H Lab 12/04/22 08:00 Ordered PTT Q4H Lab 12/04/22 12:00 Ordered PTT Q4H Lab 12/04/22 16:00 Ordered PTT Q4H Lab 12/04/22 20:00 Ordered PTT Q4H Lab 12/05/22 00:00 Ordered PTT Q4H Lab 12/05/22 04:00 Ordered PTT Stat Lab 12/03/22 07:51 Ordered PTT Stat Lab 12/03/22 07:55 Ordered TROPONIN Q4H Lab 12/03/22 04:30 Completed TROPONIN Q4H Lab 12/03/22 06:36 Completed TROPONIN Q4H Lab 12/03/22 12:00 Ordered Medication Summary Generic Name Dose Route Start Last Admin Trade Name Freq PRN Reason Stop Dose Admin Heparin Sodium/Dextrose 25,000 units in 250 mls @ 9.66 mls/hr 12/03/22 08:00 Heparin 25,000 Units/D5w: Use Order Set Dilshad IV 01/02/23 07:59 .Q24H TEETEE Protocol 12 UNITS/KG/HR Discontinued Medications Generic Name Dose Route Start Last Admin Trade Name Freq PRN Reason Stop Dose Admin Aspirin 324 mg 12/03/22 03:52 12/03/22 04:01 Aspirin 81 Mg Tab.Chew PO 12/03/22 03:53 324 mg STAT ONE Administration Aspirin Confirm 12/03/22 03:59 Aspirin 81 Mg Tab.Chew Administered 12/03/22 04:00 Dose 324 mg .ROUTE .STK-MED ONE Heparin Sodium (Beef Lung) 5,000 unit 12/03/22 07:46 12/03/22 08:15 Heparin 5000 Units/0.5 Ml 5,000 Unit/0.5 Ml Syr IV 12/03/22 07:47 5,000 unit STAT STA Administration Sodium Chloride 500 mls @ 500 mls/hr 12/03/22 04:58 12/03/22 06:55 Sodium Chloride 0.9% 500 Ml IV 12/03/22 05:57 Infused .Q1H ONE Infusion Sodium Chloride Confirm 12/03/22 05:04 Sodium Chloride 0.9% 500 Ml Administered 12/03/22 05:05 Dose 500 mls @ ud IV .STK-MED ONE Sodium Chloride Confirm 12/03/22 05:26 Sodium Chloride 0.9% 1000 Ml Administered 12/03/22 05:27 Dose 1,000 mls @ ud .ROUTE .STK-MED ONE Morphine Sulfate 4 mg 12/03/22 03:52 12/03/22 04:01 Morphine Sulfate 4 Mg/Ml Injection IV 12/03/22 03:53 4 mg STAT ONE Administration Morphine Sulfate Confirm 12/03/22 03:59 Morphine Sulfate 4 Mg/Ml Injection Administered 12/03/22 04:00 Dose 4 mg .ROUTE .STK-MED ONE Ondansetron HCl 4 mg 12/03/22 03:52 12/03/22 04:00 Ondansetron Hcl 4 Mg/2 Ml Vial IV 12/03/22 03:53 4 mg STAT ONE Administration Ondansetron HCl Confirm 12/03/22 03:58 Ondansetron Hcl 4 Mg/2 Ml Vial Administered 12/03/22 03:59 Dose 4 mg .ROUTE .STK-MED ONE Ondansetron HCl Confirm 12/03/22 05:25 Ondansetron Hcl 4 Mg/2 Ml Vial Administered 12/03/22 05:26 Dose 4 mg .ROUTE .STK-MED ONE Lab/Rad Data: Laboratory Result Diagrams 12/03/22 03:52 12/03/22 03:52 Laboratory Results 12/03/22 12/03/22 12/03/22 Range/Units 06:36 04:30 03:52 WBC (4.0-10.5) x10^3/uL RBC (4.1-5.6) x10^6/uL Hgb (12.5-18.0) g/dL Hct (42-50) % MCV (78-100) fL MCH (26-32) pg MCHC (32-36) g/dL RDW (11.5-14.0) % Plt Count (150-450) x10^3/uL MPV (7.5-11.0) fL Gran % (36.0-66.0) % Immature Gran % (Auto) (0.00-0.4) % Nucleat RBC Rel Count (0.00-0.1) % Eos # (Auto) (0-0.5) x10^3/uL Immature Gran # (Auto) (0.00-0.03) x10^3u/L Absolute Lymphs (auto) (1.0-4.6) x10^3/uL Absolute Monos (auto) (0.0-1.3) x10^3/uL Absolute Nucleated RBC (0.00-0.01) x10^3u/L Lymphocytes % (24.0-44.0) % Monocytes % (0.0-12.0) % Eosinophils % (0.00-5.0) % Basophils % (0.0-0.4) % Absolute Granulocytes (1.4-6.9) x10^3/uL Basophils # (0-0.4) x10^3/uL D-Dimer 0.96 H* (0.0-0.50) mg/L Sodium (137-145) mmol/L Potassium (3.5-5.1) mmol/L Chloride (98-107) mmol/L Carbon Dioxide (22-30) mmol/L Anion Gap (5-15) MEQ/L BUN (9-20) mg/dL Creatinine (0.66-1.25) mg/dL Estimated GFR ML/MIN Glucose (74-106) mg/dL Calcium (8.4-10.2) mg/dL Total Bilirubin (0.2-1.3) mg/dL AST (17-59) U/L ALT (0-50) U/L Alkaline Phosphatase (38-126) U/L Troponin I 0.046 H* 0.036 H* (0.000-0.034) ng/mL NT-Pro-B Natriuret Pep (<300) pg/mL Serum Total Protein (6.3-8.2) g/dL Albumin (3.5-5.0) g/dL 12/03/22 12/03/22 Range/Units 03:52 03:52 WBC 7.4 (4.0-10.5) x10^3/uL RBC 4.05 L (4.1-5.6) x10^6/uL Hgb 12.1 L (12.5-18.0) g/dL Hct 37.1 L (42-50) % MCV 91.6 (78-100) fL MCH 29.9 (26-32) pg MCHC 32.6 (32-36) g/dL RDW 12.9 (11.5-14.0) % Plt Count 281 (150-450) x10^3/uL MPV 9.8 (7.5-11.0) fL Gran % 57.7 (36.0-66.0) % Immature Gran % (Auto) 0.4 (0.00-0.4) % Nucleat RBC Rel Count 0.0 (0.00-0.1) % Eos # (Auto) 0.20 (0-0.5) x10^3/uL Immature Gran # (Auto) 0.03 (0.00-0.03) x10^3u/L Absolute Lymphs (auto) 1.99 (1.0-4.6) x10^3/uL Absolute Monos (auto) 0.85 (0.0-1.3) x10^3/uL Absolute Nucleated RBC 0.00 (0.00-0.01) x10^3u/L Lymphocytes % 26.9 (24.0-44.0) % Monocytes % 11.5 (0.0-12.0) % Eosinophils % 2.7 (0.00-5.0) % Basophils % 0.8 (0.0-0.4) % Absolute Granulocytes 4.27 (1.4-6.9) x10^3/uL Basophils # 0.06 (0-0.4) x10^3/uL D-Dimer (0.0-0.50) mg/L Sodium 138 (137-145) mmol/L Potassium 3.9 (3.5-5.1) mmol/L Chloride 103 (98-107) mmol/L Carbon Dioxide 26 (22-30) mmol/L Anion Gap 12.1 (5-15) MEQ/L BUN 22 H (9-20) mg/dL Creatinine 1.17 (0.66-1.25) mg/dL Estimated GFR > 60.0 ML/MIN Glucose 254 H (74-106) mg/dL Calcium 8.8 (8.4-10.2) mg/dL Total Bilirubin 0.40 (0.2-1.3) mg/dL AST 28 (17-59) U/L ALT 19 (0-50) U/L Alkaline Phosphatase 72 (38-126) U/L Troponin I (0.000-0.034) ng/mL NT-Pro-B Natriuret Pep 130 (<300) pg/mL Serum Total Protein 6.6 (6.3-8.2) g/dL Albumin 3.9 (3.5-5.0) g/dL - Progress Progress Note: Patient's troponin trending upward. We will transfer patient to [facility] for further evaluation and treatment. Case discussed with patient. He agrees to transfer to [facility] for further evaluation and treatment. Case discussed with Dr. Stewart, ER physician at [facility] who accepts transfer. Discussion with Dr. Stewart occurred at 7:51 AM. Heparin drip/bolus ordered.. Transfer paperwork completed Portions of this note were created with voice recognition technology. There may be grammatical, spelling, punctuation or sound alike errors 12/03/22 08:17
[2022-12-03] MEDS ORDERED: Zofran 4 MG/2 ML VIAL ONE ×2 (03:58→05:25)
[2022-12-03] MEDS ORDERED: MORPHINE SULFATE 4 MG INJ ONE (03:59)
[2022-12-03] MEDS ORDERED: BABY ASPIRIN 81 MG CHEW ONE (03:59)
[2022-12-03 04:16] LABS: Absolute Neutrophil Ct (ANC) 4.27 x10^3/uL (1.4-6.9); BASOPHIL % 0.8 % (0.0-0.4); Basophil (Absolute #) 0.06 x10^3/uL (0-0.4); Eosinophil % 2.7 % (0.00-5.0); Hematocrit 37.1 % (42-50); Hemoglobin 12.1 g/dL (12.5-18.0); IMMATURE GRAN # 0.03 x10^3u/L (0.00-0.03); IMMATURE GRAN % 0.4 % (0.00-0.4); Lymphocyte (Absolute #) 1.99 x10^3/uL (1.0-4.6); Lymphocytes % 26.9 % (24.0-44.0); Mean Cell Volume 91.6 fL (78-100); Mean Corpuscular Hemoglobin 29.9 pg (26-32); Mean Corpuscular Hgb Concent. 32.6 g/dL (32-36); Mean Platelet Volume 9.8 fL (7.5-11.0); Monocyte (Absolute #) 0.85 x10^3/uL (0.0-1.3); Monocytes % 11.5 % (0.0-12.0); Neutrophil % 57.7 % (36.0-66.0); Platelet Count 281 x10^3/uL (150-450); Red Blood Count 4.05 x10^6/uL (4.1-5.6); Red Cell Distribution Width 12.9 % (11.5-14.0); White Blood Count 7.4 x10^3/uL (4.0-10.5)
[2022-12-03 04:29] LABS: ALBUMIN 3.9 g/dL (3.5-5.0); ALKALINE PHOSPHATASE 72 U/L (38-126); ANION GAP 12.1 MEQ/L (5-15); BLOOD UREA NITROGEN 22 mg/dL (9-20); CHLORIDE 103 mmol/L (98-107); Calcium 8.8 mg/dL (8.4-10.2); Carbon Dioxide 26 mmol/L (22-30); Creatinine 1 1.17 mg/dL (0.66-1.25); EST GLOMERULAR FILTRATION RATE > 60.0 ML/MIN; Glucose 254 mg/dL (74-106); NT PRO BNPII 130 pg/mL (<300); Potassium 3.9 mmol/L (3.5-5.1); SGOT/AST 28 U/L (17-59); SGPT/ALT 19 U/L (0-50); SODIUM 138 mmol/L (137-145); Total Protein 6.6 g/dL (6.3-8.2)
[2022-12-03] MEDS ORDERED: Sodium Chloride 0.9% 500 ML 500 ML IV ONE ×2 (04:58→05:04)
[2022-12-03] MEDS ORDERED: Sodium Chloride 0.9% 1000 ML 1,000 ML ONE (05:26)
--- NOTE | 2022-12-03 06:40 | XRAY ---
CLINICAL HISTORY:chest pain, elevated ddimer COMPARISON:CT dated 04/04/2017. TECHNIQUE:: Contiguous axial CT anigographic images of the chest were acquired with the administration of intravenous contrast with PE protocol. Coronal and sagittal reconstructions were obtained. FINDINGS: No evidence of any filling defect in the main pulmonary trunk, bilateral main pulmonary arteries, segmental arteries and subsegmental arteries to suggest acute or chronic pulmonary embolism. Bilateral lower lobe areas of groundglass opacities with normal vasculature and no significant reticular thickening are redemmonstrated. Tiny air entrapment and thickening of bronchial airways is visualized. Possibility of small airway disease should be excluded. A rounded well-defined calcified nodule of 4 x 4 mm is seen in the lateral segment of left lower lobe. Left lower lobe atelectatic band is also seen. Heart size is normal, and there is no pericardial effusion. No pathologically enlarged mediastinal, hilar or axillary lymph node identified. There is no definite mass lesion in the chest wall. Mild degenerative changes are seen within the visualized thoracic spine Scanned upper abdomen is unremarkable IMPRESSION: No evidence of any filling defect in the main pulmonary trunk, bilateral main pulmonary arteries, segmental arteries and subsegmental arteries to suggest acute or chronic pulmonary embolism. Redemonstrated with interval increase bilateral lower lobe areas of groundglass opacities with normal vasculature and no significant reticular thickening. Tiny air entrapment and thickening of bronchial airways is visualized. Possibility of small airway disease should be excluded. A rounded well-defined calcified nodule of 4 x 4 mm is redemonstrated in the lateral segment of left lower lobe. No significant interval change seen. Left lower lobe atelectatic band is also seen on recent CT. Electronically Signed by: Ta Seymour MD. (12/03/2022 05:40:15 HUMAN SERVICES MANAGER)
[2022-12-03] MEDS ORDERED: HEPARIN 5000 UNITS/0.5 ML (HIGH RISK MED) IV STA (07:46)
[2022-12-03] MEDS ORDERED: Heparin 25,000 units/D5W: USE ORDER SET PROTO 25,000 UNITS/250 ML BAG IV SCH (08:00)
[2022-12-03] MEDS ORDERED: HEPARIN 5000 UNITS/0.5 ML (HIGH RISK MED) ONE (08:14)
[2022-12-03] MEDS ORDERED: Heparin 25,000 units/D5W: USE ORDER SET PROTO 25,000 UNITS/250 ML BAG IV ONE (08:15)
[2022-12-03 08:17] LABS: Hematocrit 36.9 % (42-50); Hemoglobin 11.5 g/dL (12.5-18.0); Mean Cell Volume 93.7 fL (78-100); Mean Corpuscular Hemoglobin 29.2 pg (26-32); Mean Corpuscular Hgb Concent. 31.2 g/dL (32-36); Mean Platelet Volume 9.2 fL (7.5-11.0); Platelet Count 241 x10^3/uL (150-450); Red Blood Count 3.94 x10^6/uL (4.1-5.6); Red Cell Distribution Width 12.7 % (11.5-14.0); White Blood Count 7.3 x10^3/uL (4.0-10.5)
[2022-12-03 08:23] VITALS: BP 139/90; PULSE 68; RESP 17; O2SAT 98
[2022-12-03 08:38] LABS: INR 0.93 (0.8-3.0); PROTIME 10.2 SECONDS (9.4-12.5); PTT 22.2 SECONDS (25.1-36.5)
== END 2022-12-03 08:30 | disposition short-term general hospital (02) ==
LOC: ED 03:13
DX: I24.9 Acute ischemic heart disease, unspecified (principal); R07.9 Chest pain, unspecified; R91.1 Solitary pulmonary nodule; I21.4 Non-ST elevation (NSTEMI) myocardial infarction; E11.42 Type 2 diabetes mellitus with diabetic polyneuropathy; I10 Essential (primary) hypertension; E78.5 Hyperlipidemia, unspecified; Z79.84 Long term (current) use of oral hypoglycemic drugs; Z79.4 Long term (current) use of insulin; Z79.899 Other long term (current) drug therapy
CPT/HCPCS: 36000; 36415; 71260; 80053; 83880; 84484; 85025; 85027; 85379; 85610; 85730; 93005; 96374; 96375; 99285; J1644; J2270; J2405; A9270-GY